=== PATIENT | male | born 1985 | race Two or more races ===

== ENCOUNTER → 2024-05-17 16:36 | Outpatient (BNVA) | payer SELFPAY | DX: Z72.51 High risk heterosexual behavior (principal); R30.0 Dysuria | CPT/HCPCS: 87491; 87591; 87661 ==

== ENCOUNTER → 2024-09-10 14:48 | Outpatient (BNVA) | payer OTHER, SELFPAY | PROVIDERS: Visit Provider Family Medicine | DX: R39.9 Unspecified symptoms and signs involving the genitourinary system (principal) | CPT/HCPCS: 81000; 87086 ==